=== PATIENT | female | born 1965 | race Caucasian/White ===

== ENCOUNTER 2017-05-26 10:25 | Emergency (ER) | END 2017-05-26 16:16 | disposition home or self-care (01) ==

== ENCOUNTER 2017-07-17 12:29 | Emergency (ER) | END 2017-07-17 16:40 | disposition home or self-care (01) ==

== ENCOUNTER 2017-08-13 06:03 | Day surgery (SDC) | END 2017-08-13 10:25 | disposition home or self-care (01) ==